=== PATIENT | female | born 1995 | race African-American/Black ===

== ENCOUNTER 2018-12-10 12:20 | Emergency (ER) | payer SELFPAY ==
[~2018-12-10] VITALS: Ht 170.2 cm; Wt 56.7 kg
[~2018-12-10 12:20] MED LIST: PSEUDOEPHEDRINE30 MG PO
[2018-12-10] MEDS ORDERED: NKM (12:27)
[2018-12-10 12:49] VITALS: BP 110/74
[2018-12-10 12:55] LABS: APPEARANCE,URINE SLIGHTLY CLOUDY; BILIRUBIN, URINE NEGATIVE (NEGATIVE); GLUCOSE, URINE (UA) NEGATIVE (NEGATIVE); KETONES,URINE 4+ (NEGATIVE); LEUKOCYTE ESTERASE ,URINE 1+ (NEGATIVE); NITRITE,URINE NEGATIVE (NEGATIVE); PH,URINE 5 (4.5-8.0); PROTEIN,URINE NEGATIVE (NEGATIVE); UROBILINOGEN,URINE NORMAL MG/DL (0.0-1.0)
[2018-12-10 12:59] LABS: COLOR,URINE YELLOW
--- NOTE | 2018-12-10 13:25 | Emergency Room Report ---
History of Present Illness General Chief Complaint: Vomiting Source: Patient Present Illness HPI 23 YO Female presents to the ED c/o N/V x 1 day. Denies fevers, reports chills, denies recent travel or ill contacts. Pt. denies abdominal pain or tenderness. Denies suspicion for . Denies blood in the vomit, or black tarry stools. Denies constipation or diarrhea. Denies pain at this time. Eating and drinking exacerbate her symptoms. being NPO helps to relieve her symptoms. Allergies: Coded Allergies: No Known Allergies (Unverified , 09/04/14) Patient History Past Medical History: see triage record Past Surgical History: none Pertinent Family History: none Last Menstrual Period: 11/23/18 Now: No Immunizations: UTD Reviewed Nursing Documentation: PMH: Agreed; PSxH: Agreed Nursing Documentation-PMH Past Medical History: No Stated History Review of Systems All Other Systems: negative except mentioned in HPI Physical Exam Vital Signs Date Time Temp Pulse Resp B/P (MAP) Pulse Ox O2 Delivery O2 Flow Rate FiO2 12/10/18 12:24 97.5 75 18 114/73 99 Room Air Sp02 EP Interpretation: reviewed, normal General Appearance: no apparent distress, alert, GCS 15, non-toxic Head: normocephalic, atraumatic Eyes: bilateral eye normal inspection, bilateral eye PERRL ENT: hearing grossly normal, normal voice Neck: full range of motion Respiratory: chest non-tender, lungs clear, normal breath sounds, speaking full sentences Cardiovascular #1: regular rate, rhythm Gastrointestinal: normal bowel sounds, non tender, soft, non-distended, no guarding Rectal: deferred Genitourinary: normal inspection, no CVA tenderness Musculoskeletal: back normal, gait/station normal, normal range of motion, non- tender Neurologic: alert, oriented x3, responsive, motor strength/tone normal, sensory intact, speech normal, grossly normal Psychiatric: judgement/insight normal Skin: normal color, no rash, warm/dry, well hydrated Lymphatic: no adenopathy Medical Decision Making PA Attestation Dr. Brooks is my supervising Physician whom patient management has been discussed with. Diagnostic Impression: Primary Impression: Acute gastritis Qualified Codes: K29.00 - Acute gastritis without bleeding Additional Impression: Vomiting alone Qualified Codes: R11.11 - Vomiting without nausea ER Course 23 YO Female presents to the ED c/o N/V x 1 day. Denies fevers, reports chills, denies recent travel or ill contacts. Pt. denies abdominal pain or tenderness. Denies suspicion for . Denies blood in the vomit, or black tarry stools. Denies constipation or diarrhea. Denies pain at this time. Eating and drinking exacerbate her symptoms. being NPO helps to relieve her symptoms. Ddx considered but are not limited to GE, colitis, acute appy, SBO, Cyclical Vomiting secondary to THC, * Vital signs: pt. is afebrile, H&PE are most consistent with GE most likely viral in etiology, no evidence to suggest acute abdomen on physical exam. ORDERS: -Urine Hcg: Negative -UA: WNL ED INTERVENTIONS: -Zofran 4mg -Pepcid PO --pt. tolerated oral fluid challenge, no episodes of vomiting while in the ED. DISCHARGE: At this time pt. is stable for d/c to home. Will provide printed patient care instructions, and any necessary prescriptions. Care plan and follow up instructions have been discussed with the patient prior to discharge. Labs Test 12/10/18 12:45 Urine Color Yellow Urine Appearance Slightly cloudy Urine pH 5 (4.5-8.0) Urine Specific [place] 1.025 (1.005-1.035) Urine Protein Negative (NEGATIVE) Urine Glucose (UA) Negative (NEGATIVE) Urine Ketones 4+ (NEGATIVE) Urine Blood Negative (NEGATIVE) Urine Nitrite Negative (NEGATIVE) Urine Bilirubin Negative (NEGATIVE) Urine Urobilinogen Normal MG/DL (0.0-1.0) Urine Leukocyte Esterase 1+ (NEGATIVE) Urine RBC 0-2 /HPF (0 - 2) Urine WBC 2-4 /HPF (0 - 2) Urine Squamous Epithelial Cells Moderate /LPF (NONE/OCC) Urine Bacteria Few /HPF (NONE) Urine HCG, Qualitative Negative (NEGATIVE) Last Vital Signs Date Time Temp Pulse Resp B/P (MAP) Pulse Ox O2 Delivery O2 Flow Rate FiO2 12/10/18 12:49 97.5 85 20 110/74 98 Room Air Status: improved Disposition: HOME, SELF-CARE Condition: Stable Scripts Ranitidine Hcl* (ZANTAC*) 150 Mg Tablet 150 MG ORAL DAILY for 5 Days, #5 TAB 0 Refills Prov: Domi Castano 12/10/18 Ondansetron Odt* (ZOFRAN ODT*) 4 Mg Tab.rapdis 4 MG BC EVERY 6 HOURS PRN for Nausea & Vomiting, #12 TAB 0 Refills Prov: Domi Castano 12/10/18 Departure Forms: Return to Work Return to Work Date: Dec 13, 2018 Work Restrictions: None Other Restrictions: May return Sooner if Symptoms have resolved. Return to Full Activity: Dec 13, 2018 Patient Instructions: Nausea and Vomiting, Adult Additional Instructions: Take medications as directed. Follow up with a Primary Care Provider in 3-5 days, even if your symptoms have resolved. --Please review list of primary care clinics, if you do not already have a primary care provider Return sooner to ED if new symptoms occur, or current symptoms become worse. Do not drink alcohol, drive, or operate heavy machinery while taking [ ] as this may cause drowsiness. - Please note that this Emergency Department Report was dictated using [employer] technology software, occasionally this can lead to erroneous entry secondary to interpretation by the dictation equipment. Domi Castano Dec 10, 2018 13:25
[2018-12-10] MEDS ORDERED: ONDANSETRON ODT4 MG BC (13:48)
[2018-12-10] MEDS ORDERED: ZANTAC150 MG ORAL (13:48)
[2018-12-10 14:09] VITALS: BP 113/80
== END 2018-12-10 14:09 | disposition home or self-care (01) ==
LOC: EMR 13:10
DX: K29.00 Acute gastritis without bleeding (principal); R11.10 Vomiting, unspecified
CPT/HCPCS: 81003; 81025; 99282